=== PATIENT | female | born 1965 | race Caucasian/White ===

== ENCOUNTER 2017-04-15 02:23 | Inpatient (IN) | payer OTHER ==
[~2017-04-15] VITALS: Ht 160 cm; Wt 68.9 kg
[~2017-04-15 02:23] MED LIST: AMLODIPINE BESY10 M1 PO; ASPIRIN EC325 M2 PO; ATORVASTATIN CA10 M1 PO; COLACE100 M1 PO; MELOXICAM15 M1 PO; MIRALAX17 G1 PO; MS CONTIN30 M1 PO; OXYCODONE HCL15 M1 PO; PERCOCET 5-3251 EACH PO
--- NOTE | 2017-04-15 10:14 | Admission Core Measures ---
Admission Meds I reviewed the following Meds: Current Medications Sig/Ricardo Start time Last Medication Dose Stop Time Status Admin Acetaminophen 975 MG ONCE 04/15 NR (Tylenol) 04/15 2359 Amlodipine Besylate 10 MG DAILY 04/16 1000 UNVr (Norvasc) Cefazolin Sodium 2,000 MG ONCE 04/15 NR (Kefzol-Ancef Inj) 04/15 2359 Oxycodone HCl 10 MG ONCE 04/15 NR (Roxicodone) 04/15 2359 Acute Coronary Syndrome Inclusion Criteria ACS Diagnosis No Inpatient Core Measures LDL Reminder: If No, please order W/I first 24hr of stay Congestive Heart Failure Inclusion Criteria CHF Diagnosis No Cerebrovascular accident Inclusion Criteria CVA/TIA Diagnosis No Inpatient Core Measures Bedside Swallow Eval Reminder: If BSE failed, place ST order Antithrombotic Reminder: Order Antithrombotic Medication by end of day 2 Antithrombotic Reminder: Document Reason Antithrombotic Not ordered by end of day 2 AFIB/Flutter Reminder: If Present, add to problem list AFIB/Flutter Reminder: Order Anticoag Medication for pts with AFIB/Flutter Atherosclerosis Reminder: If Present, add to problem list LDL Reminder: If No, please order W/I first 24hr of stay PT Order Reminder: If No, please order Venous thromboembolism Inpatient Core Measures VTE Risk Factors: Age > 40, [facility] prophylaxis d/t No contraindications No VTE Pharm Prophylaxis d/t No contraindications Inclusion Criteria - Per Current guidelines, there needs to be overlap - treatment for the first 5 days of Warfarin therapy. - Parenteral Anticoagulation (IV or SC) needs to be - given along with Warfarin therapy. VTE Diagnosis No VTE Type NONE VTE Confirmed by (Test) NONE Problem List As ranked by this Provider includes Assessment & Plan 1. Status post total hip replacement, left HOME MEDS Home Med List Amlodipine Besylate 10 MG TABLET 1 TAB PO DAILY BP (Reported) Meloxicam 15 MG TABLET 1 TAB PO DAILY PAIN (Reported) Oxycodone HCl 15 MG TABLET 1 TAB PO TIDPRN PAIN (Reported)
[2017-04-15] MEDS ORDERED: ASPIRIN EC325 M2 PO (10:16)
--- NOTE | 2017-04-15 10:16 | Patient Discharge Instructions ---
Discharge Instructions General Discharge Information You were seen/treated for: hip pain You had these procedures: total hip replacement Watch for these problems: Increased redness or drainage of wound No bath, but you may shower: Yes Other wound care: Keep incisions clean and dry. May shower, no bathing Diet Continue normal diet: Yes Activity Activity Self Limited: Yes Activity Limited to: Weight bear as tolerated Acute Coronary Syndrome Inclusion Criteria At DC or during hospital stay patient has or had the following: ACS DIAGNOSIS No Discharge Core Measures Meds if any: Prescribed or Continued at Discharge Meds if any: NOT Prescribed or Continued at Discharge Congestive Heart Failure Inclusion Criteria At DC or during hospital stay patient has or had the following: CHF DIAGNOSIS No Discharge Core Measures Meds if any: Prescribed or Continued at Discharge Meds if any: NOT Prescribed or Continued at Discharge Cerebrovascular accident Inclusion Criteria At DC or during hospital stay patient has or had the following: CVA/TIA Diagnosis No Discharge Core Measures Meds if any: Prescribed or Continued at Discharge Meds if any: NOT Prescribed or Continued at Discharge Venous thromboembolism Inclusion Criteria VTE Diagnosis No VTE Type NONE VTE Confirmed by (Test) NONE Discharge Core Measures - Per Current guidelines, there needs to be overlap - treatment for the first 5 days of Warfarin therapy. - If discharged on Warfarin prior to 5 days of - overlap therapy, the patient will need to be - assessed for post discharge needs including - *Post discharge parental anticoagulation - *Warfarin and/or parental anticoagulation education - *Follow up date to check INR post discharge At least 5 days overlap therapy as Inpatient No Meds if any: Prescribed or Continued at Discharge Note: Overlap Therapy is Warfarin and Anticoagulant Meds if any: NOT Prescribed or Continued at Discharge
[2017-04-15] MEDS ORDERED: MIRALAX17 G1 PO (10:17)
[2017-04-15] MEDS ORDERED: COLACE100 M1 PO (10:17)
[2017-04-15] MEDS ORDERED: MS CONTIN15 M2 PO (10:18)
[2017-04-15] MEDS ORDERED: DILAUDID4 M1 PO (10:18)
--- NOTE | 2017-04-15 10:22 | Surg Short-stay <48hrs Dis Sum ---
Visit Information Visit Dates Admission Date: 04/15/17 Discharge Date: 04/16/17 Surgical Short Stay DC Summary Admission Diagnosis: Joint pain Final Diagnosis: s/p left total hip replacement Procedure(s): left total hip replacement - see operative report Summary/Significant Findings: Pt underwent a total hip replacement by Dr Weiner on 04/15. She tolerated the procedure well and was brought to the PACU in stable condition. Over the next 24 hours, she was tolerating a diet, her pain was well controlled with medication and she worked with PT. She was cleared by PT for discharge to home with services. Condition at Discharge: good Discharge Disposition: home health services Discharge instructions provided to patient/family: Yes Post discharge follow-up plan: Keep scheduled appointment in 6 weeks. Call sooner if needed.
--- NOTE | 2017-04-15 12:38 | RADIOLOGY REPORT ---
EXAMINATION: XR HIP, LEFT CLINICAL INFORMATION: Status post left hip replacement COMPARISON: None TECHNIQUE: Two views of the left hip. FINDINGS: The components of the left total hip arthroplasty are in their expected positions. The femoral head prosthesis is well centered within the acetabular cup which exhibits approximately 18 degrees of anteversion and 48 degrees of lateral version. The femoral stem is well-positioned the medullary cavity of the proximal femoral diaphysis. No endosteal scalloping or periprosthetic fracture. IMPRESSION: Satisfactory postoperative positioning and alignment of components of left total hip arthroplasty. No acute periprosthetic fracture.
[2017-04-15 13:46] VITALS: BP 108/64
--- NOTE | 2017-04-15 14:20 | PN- Orthopedic ---
Subjective Subjective: Patient received on surgical floor, POD 0, s/p left thr, anterior approach. Having some discomfort in surgical site presently, has ambulated already. Denies chest pain, shortness of breath and difficulty breathing. Denies nausea and vomitting. Objective Vital Signs and I&Os Vital Signs Date Time Temp Pulse Resp B/P B/P Pulse O2 O2 Flow FiO2 Mean Ox Delivery Rate 04/15 1346 97.5 67 18 108/64 98 Room Air Physical Exam: General: Alert and oriented x3, no acute distress Cardiac: RRR, s1s2 Pulmonary: CTA bilaterally Abdomen: Non-tender, non-distended Extremities: Moves all extremties, distal sensation intact. Skin warm and well perfused. DP pulses palpable bilaterally. Bilateral calves soft and non- tender. Surgical site: Left hip/groin. Dressing dry and intact. Thigh compartment soft Assessment/Plan Assessment/Plan This is a 52 year old female, POD 0, s/p left thr, anterior approach. Plan: -Activity: OOB with PT/Nursing, rolling walker, WBAT -ABX ppx: Ancef 2 grams, q8 hours, x 2 additional post operative doses -DVT ppx: Mechanical: ALPS in house, TEDS at discharge Pharmacological: ASA 325 bid -Pain Regimen: PO oxycodone to be given first, 5-10 mg depending on pain scale IV morphine to be given as breakthrough every two hours as needed -Diet: Can be advanced as tolerated -Bowel Regimen: Colace 100 bid, Miralax: 17 gm daily -Dispo planning: Likely home with home health services tomorrow Will d/w Dr. Weiner Core Measures/Miscellaneous Venous Thromboembolism VTE Risk Factors: Age > 40, Surgery VTE Contraindications: No Contraindications VTE Diagnosis: No VTE Type: NONE VTE Confirmed by (Test): NONE Beta Jack Is Beta Jack a Home Med? No Antibiotics Is Patient on Antibiotics? Yes If Yes: prophylaxis
--- NOTE | 2017-04-15 15:55 | NUR ---
13:30- PT ARRIVED TO FLOOR VIA STRETCHER FROM PACU. REPORT REC'D FROM TERESE/ CHANGE MANAGEMENT CONSULTANT. PHYSICAL THERAPY AMBULATED PT FROM STRETCHER TO CHAIR. ASSIST X 1 WITH RW. S/P L TOTAL HIP. DRESSING TO L HIP C,D,I. VSS. +CMS AND PULSES TO LLE. ORIENTED PT TO ROOM AND CALL LIGHT FOR ASSIST.
--- NOTE | 2017-04-15 16:00 | NUR ---
1600- PT VOIDED 500 ML. PT DID NOT HAVE CARVALHO IN OR PER TRACK EQUIPMENT OPERATOR.
[2017-04-15 16:03] VITALS: BP 114/76
[2017-04-15 18:27] VITALS: BP 96/60
--- NOTE | 2017-04-15 19:32 | Operative Report ---
Operative/Inv Procedure Report Surgery Date: 04/15/17 Name of Procedure: Left total hip replacement Pre-Operative Diagnosis: Primary left hip DJD Post-Operative Diagnosis: Same Estimated Blood Loss: 250 Surgeon/Truck Unloader: LES BRASHER,MICHELLE Kim Anesthesia: block Operative/Procedure Note Note: Description of Procedure: The patient was taken to the operating room and positively identified. After induction of spinal anesthesia and administration of appropriate pre-operative antibiotics, the patient was positioned supine on the operating room table and all bony prominences were well padded. After performing a surgical timeout, the left lower extremity was prepped and draped in the usual sterile fashion. A direct anterior approach was made to the left hip. The incision was carried sharply through superficial soft tissues to the level of the fascia. Meticulous hemostasis was maintained with Bovie electocautery. The fascia over the tensor fascia philip muscle was opened sharply and the interval between the TFL and the sartorius was entered bluntly taking care to stay lateral to the lateral femoral cutaneous nerve. Retractors were placed around the femoral neck and the pericapsular fat was identified. The ascending branches of the lateral femoral circumflex vessels were identified and carefully coagulated. The pericapsular fat and anterior capsule were then resected. A napkin ring osteotomy was performed and the femoral head was removed without difficulty. Attention was then turned to the acetabulum. After appropriate placement of retractors, the acetabulum was exposed. Soft tissue was cleaned from the acetabular margin and notch. Overhanging osteophytes were removed and the teardrop was exposed. The acetabulum was then sequentially reamed to accept a 56 mm Mcrae Helena Tritanium hemispherical solid back shell. This was impacted into place in the appropriate position and fitted with a 32 mm Trident X3 zero degree polyethylene insert. Attention was then turned to the femur. After performing the appropriate ligament releases, the proximal femur was exposed. It was then sequentially broached to accept a size 5 Mcrae Helena accolade 2 stem. This was trialed for leg length and stability. The trial component was removed and the final component was impacted into place. The trunnion was carefully cleaned and fit with a 32 mm, +4 Biolox delta ceramic femoral head. The hip was reduced and put through a full range of motion and found to be stable. The articular space was then irrigated with sterile saline. The periarticular soft tissues were infilitrated with Marcaine. The fascial layer was closed with interrupted #1 vicryl suture and the skin was re-approximated with interrupted 2 -0 vicryl. The skin was closed with a running 3-0 V-Lock suture. Steri-strips and a sterile dressing were applied. The patient was awakened and taken to the recovery room in satisfactory condition.
[2017-04-15 20:03] VITALS: BP 98/60
--- NOTE | 2017-04-15 21:19 | NUR ---
PT A/O X3. VSS. GOOD PO INTAKE. VOIDING WITHOUT PROBLEM. CALLED SURG PA ALLISON TO D/C IV FLUIDS.
[2017-04-16] VITALS: BP 118/64
[2017-04-16 04:12] VITALS: BP 104/7
[2017-04-16] MEDS ORDERED: OXYCODONE HCL5 M1 PO (07:34)
--- NOTE | 2017-04-16 07:38 | PN- Orthopedic ---
Subjective Subjective: C/O Overnight pain but no other complaints at the present time. Denies chest pain, sob, difficulty breathing. Has been voiding. Denies nausea and vomitting. Has been tolerating diet. Has ambulated with PT. Has to do stairs today. Is interested in going home pending pain control and pt clearance today. Objective Vital Signs and I&Os Vital Signs Date Time Temp Pulse Resp B/P B/P Pulse O2 O2 Flow FiO2 Mean Ox Delivery Rate 04/16 0412 98.8 60 16 104/7 94 Room Air 04/16 0000 98.6 64 16 118/64 95 Room Air 04/15 2003 97.8 66 20 98/60 94 Room Air 04/15 1827 98.3 61 18 96/60 94 Room Air 04/15 1603 97.9 63 20 114/76 98 Room Air 04/15 1346 97.5 67 18 108/64 98 Room Air Intake & Output 04/16 0800 04/16 0000 04/15 1600 04/15 0800 04/15 0000 04/14 1600 Intake Total 220 200 Output Total 900 Balance 220 -700 Intake, IV 120 Intake, Oral 100 200 Output, Urine 900 Patient 152 lb Weight Physical Exam: General: AAO x3, no acute distress Cardiac: RRR, s1s2 Pulm: CTA bilaterally Abd: Non-tender, non-distended Extremities: Moves all extremities, distal sensation intact. Skin warm and well perfused. DP pulses palpable. Calves soft and non-tender bialterally Surgical site: Dressing dry and intact, thigh soft Assessment/Plan Assessment/Plan 52 year old F pod 1 s/p l thr, doing well -PT to eval stairs this am -Adding MS contin 15 mg to start now, bid -Plan for d.c to home with services pending pain control and pt clearance -no other changes to plan of care Core Measures/Miscellaneous Venous Thromboembolism VTE Risk Factors: Age > 40, Surgery VTE Contraindications: No Contraindications VTE Diagnosis: No VTE Type: NONE VTE Confirmed by (Test): NONE Beta Jack Is Beta Jack a Home Med? No Antibiotics Is Patient on Antibiotics? Yes If Yes: prophylaxis
[2017-04-16 08:03] LABS: ABSOLUTE BASOPHIL COUNT 0 /CUMM (0.0-0.2); ABSOLUTE EOSINOPHIL COUNT 0.1 /CUMM (0.0-0.7); ABSOLUTE GRANULOCYTE CT 6.9 /CUMM (1.4-6.5); ABSOLUTE LYMPH COUNT 1.7 /CUMM (1.2-3.4); ABSOLUTE MONOCYTE COUNT 0.8 /CUMM (0.10-0.60); BASOPHIL % 0.2 % (0.0-2.0); EOSINOPHIL % 1.3 % (0-5); GRANULOCYTE % 72.6 % (42.2-75.2); HEMATOCRIT 32.4 % (37-47); MEAN CORPUSCULAR HGB 31.3 PG (27.0-31.0); MEAN CORPUSCULAR HGB CONC 33.6 G/DL (33.0-37.0); MEAN PLATELET VOLUME 9.2 FL (7.4-10.4); PLATELET COUNT 152 /CUMM (130-400); RBC DISTRIBUTION WIDTH 13.3 % (11.5-14.5); RED BLOOD CELL CT 3.48 /CUMM (4.20-5.40); WHITE BLOOD CELL COUNT 9.5 /CUMM (4.8-10.8)
[2017-04-16 08:16] VITALS: BP 114/56
[2017-04-16] MEDS ORDERED: ASPIRIN325 M2 PO (09:23)
[2017-04-16] MEDS ORDERED: MIRALAX119 GM PO (09:23)
== END 2017-04-16 11:03 | disposition home health service (06) | DRG 301 ==
LOC: SDA 02:23 → ENRESERV 12:20 → 2NA 13:26
PROVIDERS: Physician Assistant Surgical; ADMIT Orthopaedic Surgery
PROC: 0SRB04A Replacement of Left Hip Joint with Ceramic on Polyethylene Synthetic Substitute, Uncemented, Open Approach (ICD-10-PCS; principal; 2017-04-15)
DX: M16.12 Unilateral primary osteoarthritis, left hip (principal); I10 Essential (primary) hypertension; F17.210 Nicotine dependence, cigarettes, uncomplicated; F41.9 Anxiety disorder, unspecified
CPT/HCPCS: 2NASP; 73502-LT; 82436; 88304; 97110-GO; 97116-GO; 97161-GP; 97530-GO; J0690; J0735; J1100; J2405; J7042